=== PATIENT | male | born 1980 | race Caucasian/White ===

== ENCOUNTER 2025-01-04 10:28 | Day surgery (SDC) | payer MEDICAID ==
[~2025-01-04] VITALS: Ht 185.4 cm; Wt 94.9 kg
[2025-01-04] VITALS (11 sets, daily range): BP systolic 114–134; BP diastolic 70–83; PULSE 68–96; RESP 10–12; TEMP 98.2; O2SAT 94–97
[2025-01-04] MEDS ORDERED: glucagon, human recombinant 1mg kit SUBCUT PRN (11:15)
[2025-01-04] MEDS ORDERED: DEXTROSE 15 GM of carb/4 tabs (each vial/BOTTLE has 4 tablets) PO PRN ×2 (11:15)
[2025-01-04] MEDS ORDERED: dextrose 50%-water 50ml dispensing syringe IV PRN ×2 (11:15)
[2025-01-04] MEDS ORDERED: nitroGLYCERIN 0.4mg SUBLingual tab SL PRN ×2 (11:15→13:55)
[2025-01-04] MEDS ORDERED: EPIN0.3A3 (11:25)
[2025-01-04] MEDS ORDERED: SEMA2.4P (11:25)
[2025-01-04] MEDS ORDERED: PRED20TA PO (11:25)
[2025-01-04] MEDS ORDERED: MOME13HF11 INH (11:25)
[2025-01-04 11:30] LABS: BASOPHILS % (AUTO) 0.1 % (0-1); EOSINOPHILS % (AUTO) 0 % (0-6); HEMATOCRIT 47.3 % (42.0-52.0); HEMOGLOBIN 16.1 g/dl (14.0-17.9); LYMPHOCYTES # (AUTO) 1.3 X10'3 (1.1-4.8); LYMPHOCYTES % (AUTO) 7.3 % (21-51); MEAN CORPUSCULAR HEMOGLOBIN 31.2 PG (27.0-31.0); MEAN CORPUSCULAR VOLUME 91.8 FL (78-98); MEAN PLATELET VOLUME 6.9 FL (7.4-10.4); MONOCYTES # (AUTO) 0.4 X10'3 (0-0.9); MONOCYTES % (AUTO) 2.3 % (2-12); NEUTROPHILS % (AUTO) 90.3 % (42-75); PLATELET COUNT 305 X10'3 (140-440); RED BLOOD COUNT 5.16 X10'6 (4.70-6.10); RED CELL DISTRIBUTION WIDTH 13.6 % (11.5-14.5); WHITE BLOOD COUNT 17.7 X10'3 (4.5-11.0)
[2025-01-04] MEDS: LORazepam 0.5 MG tablet PO PRN (11:39)
[2025-01-04] MEDS: normal saline 1,000 ML IV SCH (11:39)
[2025-01-04] MEDS: diphenhydrAMINE 25mg capsule PO PRN (11:39)
[2025-01-04] MEDS: methylPREDNISolone sod succ 125mg/2ml vial IV ONE (11:39)
[2025-01-04 11:40] LABS: APTT 28 SECONDS (22-32); PROTHROMBIN TIME 10.9 SECONDS (9.0-12.0)
[2025-01-04] MEDS ORDERED: midazolam 1 mg/ML 2ml injection ONE ×2 (12:32→13:02)
[2025-01-04] MEDS ORDERED: iohexol 350 MG/ML 50ML vial IV ONE (12:32)
[2025-01-04] MEDS ORDERED: fentaNYL/PF 50MCG/1 ML 2ML syringe ONE (12:32)
[2025-01-04] MEDS ORDERED: iohexol 350MG/ML 100ml bottle IV ONE (12:32)
[2025-01-04] MEDS ORDERED: LIDOcaine 1% 30ml preserv. free vial ONE (12:32)
[2025-01-04 12:48] LABS: ALBUMIN 4.5 G/DL (3.4-5.0); ANION GAP 10 (8-16); BLOOD UREA NITROGEN 11 MG/DL (7-18); BUN/CREATININE RATIO 16.2 (10.0-20.0); CALCIUM 9.2 MG/DL (8.5-10.1); CHLORIDE 106 MMOL/L (99-107); CREATININE 0.68 MG/DL (0.60-1.10); GLUCOSE 114 MG/DL (70-104); POTASSIUM 3.9 MMOL/L (3.5-5.1); SODIUM 141 MMOL/L (135-145); TOTAL CARBON DIOXIDE 25.1 MMOL/L (24-32); eCRCL 160 ML/MIN; eGFR > 90 ML/MIN
[2025-01-04] MEDS ORDERED: normal saline 1000ml 1,000 ML IV SCH (13:50)
[2025-01-04] MEDS ORDERED: ondansetron/PF 4mg/2ml inj IV PRN (13:50)
[2025-01-04] MEDS ORDERED: proCHLORperazine 10 MG/2 ml inj IV PRN (13:55)
[2025-01-04] MEDS ORDERED: OXAZEpam 15mg capsule PO PRN (13:55)
[2025-01-04] MEDS ORDERED: NITR0.4T51 SL (17:17)
== END 2025-01-04 18:45 | disposition home or self-care (01) ==
LOC: SSTAY O 10:28
PROVIDERS: ATTEND Internal Medicine Cardiovascular Disease
DX: R94.39 Abnormal result of other cardiovascular function study (principal); E11.9 Type 2 diabetes mellitus without complications; F41.1 Generalized anxiety disorder; Z87.891 Personal history of nicotine dependence; Z91.040 Latex allergy status; Z88.5 Allergy status to narcotic agent; Z88.6 Allergy status to analgesic agent; Z88.8 Allergy status to other drugs, medicaments and biological substances; Z79.899 Other long term (current) drug therapy
CPT/HCPCS: 36415; 71046; 80048; 85025; 85610; 85730; 93005; 93458; 99152; J1644; J2003; J2250; J2919; J3010; J7030; Q0163; Q9967; 99153; A6258; C1760